=== PATIENT | male | born 1985 | race Caucasian/White ===

== ENCOUNTER 2022-10-18 22:25 | Emergency (ER) | payer SELFPAY | END 2022-10-18 23:33 | disposition left against medical advice (07) | LOC: MW.ED 22:25 | DX: Z53.21 Procedure and treatment not carried out due to patient leaving prior to being seen by health care provider (principal) ==

== ENCOUNTER 2023-03-31 23:03 | Emergency (ER) | payer SELFPAY ==
[2023-03-31] MEDS ORDERED: Albuterol/Ipratropium 3.0-0.5 MG/3 ML Neb Soln NEB ONE (23:08)
[2023-03-31] MEDS ORDERED: predniSONE 10 MG Tab PO ONE (23:08)
[2023-03-31] MEDS ORDERED: predniSONE 20 MG Tab PO STA (23:26)
== END 2023-04-01 00:57 | disposition home or self-care (01) ==
LOC: MW.ED 23:03
DX: J45.901 Unspecified asthma with (acute) exacerbation (principal); F17.210 Nicotine dependence, cigarettes, uncomplicated; Z20.822 Contact with and (suspected) exposure to COVID-19; Z71.6 Tobacco abuse counseling
CPT/HCPCS: 71046; 87635; 99285; A9270; 99283; J7620-GY; U0002

== ENCOUNTER 2023-06-01 20:58 | Emergency (ER) | payer SELFPAY ==
[2023-06-01] MEDS ORDERED: Ketorolac 30 MG/ML SDV IM ONE (21:49)
== END 2023-06-01 22:14 | disposition home or self-care (01) ==
LOC: MW.ED 20:58
DX: M25.522 Pain in left elbow (principal); Z72.0 Tobacco use; W18.30XA Fall on same level, unspecified, initial encounter; Y93.01 Activity, walking, marching and hiking
CPT/HCPCS: 73080; 96372; 99283; J1885

== ENCOUNTER 2023-06-24 09:49 | Emergency (ER) | payer SELFPAY | END 2023-06-24 11:24 | disposition home or self-care (01) | LOC: MW.ED 09:49 | DX: S92.512A Displaced fracture of proximal phalanx of left lesser toe(s), initial encounter for closed fracture (principal); W22.8XXA Striking against or struck by other objects, initial encounter | CPT/HCPCS: 73600-26-LT; 73600-LT; 73630-26-LT; 73630-LT; 99283 ==

== ENCOUNTER 2023-07-11 12:13 | Emergency (ER) | payer SELFPAY | END 2023-07-11 12:26 | disposition left against medical advice (07) | LOC: MW.ED 12:13 | DX: Z53.21 Procedure and treatment not carried out due to patient leaving prior to being seen by health care provider (principal) ==

== ENCOUNTER 2023-07-12 13:07 | Emergency (ER) | payer SELFPAY | END 2023-07-12 14:37 | disposition home or self-care (01) | LOC: MW.ED 13:07 | DX: S92.522D Displaced fracture of middle phalanx of left lesser toe(s), subsequent encounter for fracture with routine healing (principal); X58.XXXD Exposure to other specified factors, subsequent encounter | CPT/HCPCS: 73620-26-LT; 73620-LT; 99283 ==

== ENCOUNTER 2024-02-11 19:39 | Emergency (ER) | payer SELFPAY ==
[2024-02-11] MEDS: Ketorolac 30 MG/ML SDV IM STA (20:04)
[2024-02-11] MEDS: Orphenadrine 60 MG/2 ML Inj IM STA (20:04)
== END 2024-02-11 20:48 | disposition home or self-care (01) ==
LOC: MW.ED 19:39
DX: M54.42 Lumbago with sciatica, left side (principal); F17.210 Nicotine dependence, cigarettes, uncomplicated; Z75.8 Other problems related to medical facilities and other health care
CPT/HCPCS: 96372; 99283; J1885; J2360

== ENCOUNTER 2024-03-13 10:21 | Emergency (ER) | payer SELFPAY | END 2024-03-13 10:59 | disposition home or self-care (01) | LOC: MW.ED 10:21 | DX: R20.2 Paresthesia of skin (principal); Z75.8 Other problems related to medical facilities and other health care | CPT/HCPCS: 99283 ==

== ENCOUNTER 2024-11-27 10:43 | Emergency (ER) | payer BC ==
[2024-11-27] MEDS: Ketorolac 30 MG/ML SDV IM ONE (13:00)
[2024-11-27] MEDS: Orphenadrine 60 MG/2 ML Inj IM ONE (13:02)
[2024-11-27] MEDS: Lidocaine 4% Patch TOP STA (13:03)
== END 2024-11-27 13:23 | disposition home or self-care (01) ==
LOC: MW.ED 10:43
DX: M54.41 Lumbago with sciatica, right side (principal); M54.42 Lumbago with sciatica, left side; F17.200 Nicotine dependence, unspecified, uncomplicated; Z79.899 Other long term (current) drug therapy; Z75.3 Unavailability and inaccessibility of health-care facilities
CPT/HCPCS: 96372; 99283; A9270; J1100; J1885; J2360

== ENCOUNTER 2025-04-30 02:07 | Emergency (ER) | payer BC | END 2025-04-30 02:53 | disposition home or self-care (01) | LOC: MW.ED 02:07 | DX: J45.41 Moderate persistent asthma with (acute) exacerbation (principal); Z72.0 Tobacco use; Z79.899 Other long term (current) drug therapy | CPT/HCPCS: 99284; A9270; J7620; 99283 ==

== ENCOUNTER 2025-05-23 09:40 | Emergency (ER) | payer BC ==
[2025-05-23 10:21] LABS: BASOPHILS ABSOLUTE AUTO 0.07 K/uL (0.00-0.20); BASOPHILS PERCENT AUTO 0.6 % (0.0-1.0); EOSINOPHILS ABSOLUTE AUTO 0.39 K/uL (0.00-0.45); EOSINOPHILS PERCENT AUTO 3.6 % (0.0-6.0); IMMATURE GRAN ABSOLUTE AUTO 0.03 K/uL (0.00-0.05); IMMATURE GRAN PERCENT AUTO 0.3 % (0.0-0.4); LYMPHOCYTES ABSOLUTE AUTO 2.19 K/uL (1.00-4.80); LYMPHOCYTES PERCENT AUTO 20.3 % (24.0-44.0); MEAN PLATELET VOLUME 8.8 fL (9.4-12.4); MONOCYTES ABSOLUTE AUTO 1.12 K/uL (0.00-0.80); MONOCYTES PERCENT AUTO 10.4 % (0.0-8.0); NEUTROPHILS ABSOLUTE AUTO 6.97 K/uL (1.80-7.70); NEUTROPHILS PERCENT AUTO 64.8 % (41.0-71.0); NRBC ABSOLUTE 0.00 K/uL (0.00-0.02); NRBC PERCENT 0.0 /100WBC (0.0-0.2); PLATELET COUNT,PLT 257 K/uL (150-400); RED BLOOD CELL COUNT 5.06 M/uL (4.52-5.90); WHITE BLOOD CELL COUNT,WBC 10.77 K/uL (3.9-11.3)
[2025-05-23 10:35] LABS: D-DIMER QUANTITATIVE 1.57 mg/L FEU (0.00-0.50); INR 1.04 (0.86-1.11)
[2025-05-23] MEDS: Iopamidol 755 MG/ML 500 ML Multipack Bottle IVPUSH STA ×2 (11:14→11:15)
[2025-05-23 11:17] LABS: A/G RATIO 1.2 (0.9-1.6); ALANINE AMINOTRANSFERASE,ALT 51.0 IU/L (14-63); ASPARTATE AMNIOTRANSFERASE,AST 42.0 IU/L (15-37); BILIRUBIN TOTAL 0.8 mg/dL (0.2-1.0); BLOOD UREA NITROGEN,BUN 25.0 mg/dL (7.0-18.0); CARBON DIOXIDE,CO2 25.9 mmol/L (21.0-32.0); CHLORIDE,CL 103.0 mmol/L (98-107); CREATININE 1.4 mg/dL (0.8-1.3); EST CRCL DRUG DOSING (CG) 75.63 mL/min; GLUCOSE RANDOM 100.0 mg/dL (74-106); POTASSIUM,K 3.9 mmol/L (3.5-5.1); PROTEIN TOTAL,TP 8.2 g/dL (6.4-8.2); SODIUM,NA 139.0 mmol/L (136-148)
[2025-05-23 11:20] LABS: ESTIMATED GFR 65.0 mL/min (>60)
[2025-05-23 12:19] LABS: APPEARANCE,URINE CLEAR; GLUCOSE,URINE NEGATIVE (NEGATIVE); OCCULT BLOOD,URINE NEGATIVE (NEGATIVE)
[2025-05-23] MEDS: Ketorolac 30 MG/ML SDV IVPUSH ONE (13:52)
== END 2025-05-23 16:18 | disposition home or self-care (01) ==
LOC: MW.ED 09:40
DX: R07.89 Other chest pain (principal); I10 Essential (primary) hypertension; Z79.899 Other long term (current) drug therapy
CPT/HCPCS: 36415; 71275; 80053; 81003; 84484; 85025; 85379; 85610; 93005; 93970; 96374; 99285; A9270; J1885; Q9967; 93010; 99284